=== PATIENT | female | born 1970 | race Two or more races ===

== ENCOUNTER → 2022-10-13 | Outpatient (CLI) | payer OTHER, MEDICAID ==
[~2022-10-13] MED LIST: BARIUM SULFATE 700 MG TABLET (E-Z-DISK) As Ordered ONE; E-Z-PAQUE 96% w/w SUSP 176GM BTL As Ordered ONE; VARIBAR NECTAR 40% w/v 240ML SUSP BTL As Ordered ONE; VARIBAR PUDDING 40% w/v 230ML TUBE As Ordered ONE
== END ==
LOC: M RAD 12:35
PROVIDERS: ATTEND Otolaryngology
DX: R13.19 Other dysphagia (principal)

== ENCOUNTER → 2023-03-31 | Outpatient (CLI) | payer OTHER, MEDICAID | LOC: M PLAIMG 10:57 | PROVIDERS: ATTEND Otolaryngology | DX: R04.0 Epistaxis (principal) ==